=== PATIENT | male | born 1945 | race Caucasian/White ===

== ENCOUNTER → 2017-08-06 | Outpatient (CLI) | payer MEDICARE, OTHER ==
--- NOTE | 2017-08-06 09:03 | CT ---
EXAMINATION TYPE: CT foot LT wo con DATE OF EXAM: 08/06/2017 COMPARISON: NONE HISTORY: left foot pain/sx [address] DLP: 191.0 mGycm Automated exposure control for dose reduction was used. TECHNIQUE: Helical acquisition through the left foot was obtained without intravenous contrast. The d flaco was reformatted in axial, coronal and sagittal planes. Three-dimensional volume rendered display was also obtained on an independent workstation. FINDINGS: There is extensive postsurgical change with metallic streak artifact limiting examination. Multiple t alocalcaneal screws pins and plates are in place creating arthrodesis of the calcaneus talus and midf oot. 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 Multiple cystic lesions are present throughout the talus, os calcis and osseous structures of the mid foot in addition to the base of the fourth metatarsal. I do not see evidence for an acute fracture at this time. No destructive bony lesion is seen to sugge st osteomyelitis. There is flattening of the plantar arch. Extensive dorsal calcaneal spurring. Soft tissues are grossl y unremarkable. IMPRESSION: 1. EXTENSIVE DEGENERATIVE CYSTIC CHANGE. 2. POSTSURGICAL CHANGES DISCUSSED ABOVE.
== END | disposition home or self-care (01) ==
LOC: RADCTMAIN 08:06
PROVIDERS: ATTEND Orthopaedic Surgery Foot and Ankle Surgery
DX: M25.80 Other specified joint disorders, unspecified joint (principal); Z98.890 Other specified postprocedural states

== ENCOUNTER → 2019-11-23 | Outpatient (CLI) | payer MEDICARE, OTHER ==
--- NOTE | 2019-11-23 14:55 | XR ---
Left hip HISTORY: Trauma 3 weeks prior, pain 2 views of the left hip Penile prosthesis is noted incidentally. Bone mineralization is reduced. Alignment, joint spaces, sof t tissues are otherwise unremarkable. IMPRESSION: No fracture or dislocation.
--- NOTE | 2019-11-23 14:59 | XR ---
Right elbow HISTORY: Pain, trauma 3 weeks prior 3 views of the right elbow Osteoarthritic changes are extensive with joint space loss, subchondral sclerosis and geode formation . Bone mineralization is maintained. Soft tissue calcifications along the common extensor tendon at t he lateral humeral condyle are noted with some hypertrophic changes. No definite joint effusion. Smal l ossific densities also noted at the volar aspect of the distal humerus. There is bone remodeling. IMPRESSION: No acute fracture or dislocation. Osteoarthritic changes are suspected.
--- NOTE | 2019-11-23 15:40 | XR ---
Lumbosacral spine HISTORY: Trauma and pain 5 views of the lumbosacral spine correlated to prior exam 11/13/2010 There is a minimal anterolisthesis grade 1 L5-S1. Multilevel spondylosis is present. No evident spond ylolysis. Bone mineralization is reduced. Mild spinal curvature is present. Lumbar vertebral bodies s how preserved height. Sclerosis is present in the posterior elements. Loss of disc height is greatest at L2-3. Vascular calcifications are noted in the aorta. IMPRESSION: Degenerative disc disease, osteopenia, facet arthropathy. Spinal curvature. No acute frac ture or subluxation.
== END | disposition home or self-care (01) ==
LOC: RADXRYALE 13:58
PROVIDERS: ATTEND Internal Medicine
DX: M51.36 Other intervertebral disc degeneration, lumbar region (principal); M46.96 Unspecified inflammatory spondylopathy, lumbar region; M43.9 Deforming dorsopathy, unspecified; M25.552 Pain in left hip; M25.551 Pain in right hip
CPT/HCPCS: 72110; 73502

== ENCOUNTER → 2025-01-31 | Outpatient (CLI) | payer MEDICARE ==
[2025-01-31 08:47] LABS: Appearance,Urine Clear (Clear); Bilirubin,Urine Negative (Negative); Blood,Urine Negative (Negative); Color,Urine Yellow; Glucose,Urine (UA) Negative (Negative); Ketones,Urine Negative (Negative); Leukocyte Esterase,Urine Negative (Negative); Nitrite,Urine Negative (Negative); PH, Urine 6.5 (5.0-8.0); Protein,Urine Negative (Negative); Specific Gravity,Urine 1.019 (1.001-1.035); Urobilinogen,Urine <2.0 mg/dL (<2.0)
[2025-01-31 10:19] LABS: Basophils # (A) 0.08 X 10*3/uL (0.00-0.10); Basophils % (A) 1.3 %; Eosinophils # (A) 0.11 X 10*3/uL (0.04-0.35); Eosinophils % (A) 1.7 %; HGB 15.2 g/dL (13.0-17.0); Lymphocytes # (A) 1.77 X 10*3/uL (0.90-5.00); Lymphocytes % (A) 28.1 %; MCH 28.3 pg (27.0-32.0); MCV 85.5 FL (80.0-97.0); Monocytes % (A) 9.5 %; NRBC Per 100 WBC 0 X 10*3/uL (0.00-0.01); Neutrophils # (A) 3.73 X 10*3/uL (1.80-7.70); Neutrophils % (A) 59.1 %; Platelet Count 208 X 10*3/uL (140-440); RBC 5.38 X 10*6/uL (4.40-5.60); RDW 13.8 % (11.5-14.5); WBC 6.31 X 10*3/uL (4.50-10.00)
[2025-01-31 10:30] LABS: ALT 22 U/L (10-49); AST 21 U/L (14-35); Albumin 4.1 g/dL (3.8-4.9); Albumin/Globulin Ratio 1.86 Ratio (1.60-3.17); Alkaline Phosphatase 54 U/L (41-126); BUN/Creat Ratio 16.11 Ratio (12.00-20.00); Blood Urea Nitrogen 14.5 mg/dL (9.0-27.0); Calcium 9.1 mg/dL (8.7-10.3); Carbon Dioxide 24.8 mmol/L (21.6-31.8); Chloride 103 mmol/L (96-109); Globulin 2.2 g/dL (1.6-3.3); Glucose 113 mg/dL (70-110); Potassium 3.8 mmol/L (3.5-5.5); Sodium 140 mmol/L (135-145); Total Bilirubin 0.5 mg/dL (0.3-1.2); Total Protein 6.3 g/dL (6.2-8.2)
== END | disposition home or self-care (01) ==
LOC: LABWHC1 07:55
PROVIDERS: ATTEND Urology
DX: Z01.818 Encounter for other preprocedural examination (principal)
CPT/HCPCS: 36415; 80053; 81003; 85025; 87086